=== PATIENT | female | born 1955 | race Two or more races ===

== ENCOUNTER 2018-11-08 08:00 | Inpatient (IN) | payer OTHER ==
[2018-11-02 10:09] VITALS: BMI 30.8
[2018-11-09] MEDS ORDERED: CEFAZOLIN 2 GM in DEXTROSE 5%-WATER - 50 ML IVPB ONE (07:18)
[2018-11-09] MEDS ORDERED: GABAPENTIN 300 MG CAPSULE (FP) PO ONE (07:18)
[2018-11-09] MEDS ORDERED: oxyCODONE HCL 10 MG SUSTAINED ACTING TABLET PO ONE (07:18)
[2018-11-09] MEDS ORDERED: TRANEXAMIC ACID 1000 MG/10 ML VIAL IVPUSH ONE (07:18)
--- NOTE | 2018-11-09 07:54 | HP ---
[facility] - Chief Complaint Chief Complaint: right knee pain - Past Medical History Allergies/Adverse Reactions: Allergies Allergy/AdvReac Type Severity Reaction Status Date / Time ibuprofen [From Motrin] Allergy Severe SWELLING,IT Verified 11/02/18 09:59 JENNIFER - Current Medications Current Medications: Home Medications Medication Instructions Recorded Atorvastatin Calcium [Lipitor] 20 mg PO HS 11/02/18 Multivitamins [Tab-A-Vit -] 1 tab PO DAILY 11/02/18 Cholecalciferol (Vitamin D3) 2,000 unit PO DAILY 11/09/18 [Vitamin D] [facility] Physical Exam - Physical Examination Vital Signs: Vital Signs Period Temp Pulse Resp BP Sys/Hayes Pulse Ox Last 24 Hr 98.7 F 82 18 132/82 General Appearance: Well Nourished, Well Developed, Alert & Oriented x3 ENT: Clear Lung: Normal air movement Heart: Regular rate & rhythm Extremities: Other (right knee- +swelling, + ttp, decr rom, nvi, xrays show grade 4 tricompartmental djd) Neurological: Intact, Alert, Oriented Satellite Impression/Plan - Impression/Plan Impression: right knee djd Operative Procedure: right johanny tkr Date to be Performed: 11/09/18
[2018-11-09] MEDS ORDERED: ceFAZolin SODIUM 1 GM VIAL ONE (08:07)
[2018-11-09] MEDS ORDERED: SODIUM CHLORIDE 0.9% P/F 10 ML VIAL IJ ONE ×4 (08:08→08:52)
[2018-11-09] MEDS ORDERED: BUPIVACAINE LIPOSOME/PF (EXPAREL) 266 MG/20 ML VIAL ONE (08:29)
[2018-11-09] MEDS ORDERED: MIDAZOLAM HCL 2 MG/2 ML SINGLE DOSE VIAL ONE ×3 (08:29→09:56)
[2018-11-09] MEDS ORDERED: PROPOFOL 20 ML ONE (08:43)
[2018-11-09] MEDS ORDERED: ONDANSETRON 4 MG/2 ML VIAL ONE (08:46)
[2018-11-09] MEDS ORDERED: DEXAMETHASONE SOD PHOSPHATE 4 MG/1 ML VIAL ONE (08:46)
[2018-11-09] MEDS ORDERED: LIDOCAINE HCL/PF 2% SDV 5ML VIAL ONE (08:46)
[2018-11-09] MEDS ORDERED: ePHEDrine SULFATE 50 MG/1 ML AMPULE ONE (08:49)
[2018-11-09] MEDS ORDERED: PHENYLEPHRINE HCL 10 MG/1 ML SINGLE DOSE VIAL ONE (08:50)
[2018-11-09] MEDS ORDERED: SUCCINYLCHOLINE CHLORIDE 200 MG/10 ML VIAL ONE (08:53)
[2018-11-09] MEDS ORDERED: ceFAZolin SODIUM 1 GM VIAL IVPB ONE ×2 (09:07→10:15)
[2018-11-09] MEDS ORDERED: LACTATED RINGERS SOLUTION 1,000 ML IV SCH (09:15)
[2018-11-09] MEDS ORDERED: VANCOMYCIN 1,000 MG VIAL (RESTRICTED TO ID ONLY) ONE (09:45)
[2018-11-09] MEDS ORDERED: TRANEXAMIC ACID 1000 MG/10 ML VIAL ONE (10:07)
[2018-11-09] MEDS ORDERED: VANCOMYCIN 1,000 MG VIAL (RESTRICTED TO ID ONLY) IVPB ONE (10:40)
--- NOTE | 2018-11-09 11:06 | OP ---
Operative Note - Note: Operative Date: 11/09/18 ([place]) Pre-Operative Diagnosis: right knee djd Operation: right johanny tkr Post-Operative Diagnosis: Same as Pre-op Surgeon: Raghav Wallace Manager Of International: Daren Escalante Anesthesiologist/GROUP MARKETING VP: Eric Ruiz Anesthesia: Spinal, Local Specimens Removed: bone fragments Estimated Blood Loss (mls): 100 Operative Report Dictated: Yes
[2018-11-09] MEDS: SENNOSIDES/DOCUSATE COMBO (SENNA PLUS) TABLET (UD) PO SCH ×2 (13:53→21:52)
[2018-11-09] MEDS: MULTIVITAMINS (DAILY MVI) TABLET (FP) PO SCH (13:54)
[2018-11-09] MEDS: PANTOPRAZOLE 40 MG TABLET (FP) PO SCH (13:54)
[2018-11-09] MEDS ORDERED: oxyCODONE HCL 5 MG TABLET PO PRN (14:49)
[2018-11-09] MEDS: oxyCODONE HCL 5 MG TABLET PO PRN ×2 (14:59→20:27)
[2018-11-09] MEDS: ACETAMINOPHEN 325 MG TABLET (FP) PO SCH ×2 (14:59→20:27)
--- NOTE | 2018-11-09 16:31 | CONSULT ---
Consult Consult Specialty:: IM Reason for Consultation:: post op medical management - History of Present Illness Chief Complaint: right knee pain History of Present Illness: 63 yo lady with PMH of HLD, hysterectomy, right knee DJD comes in for TKR denies chest pain, palpitations, nausea, vomiting, diarrhea. - History Source History Provided By: Patient, Medical Record Limitations to Obtaining History: Language Barrier - Past Medical History Cardio/Vascular: Yes: Hyperlipdemia - Past Surgical History Past Surgical History: Yes: Hysterectomy - Alcohol/Substance Use Hx Alcohol Use: No - Smoking History Smoking history: Never smoked Have you smoked in the past 12 months: No Home Medications - Allergies Allergies/Adverse Reactions: Allergies Allergy/AdvReac Type Severity Reaction Status Date / Time ibuprofen [From Motrin] Allergy Severe SWELLING,IT Verified 11/02/18 09:59 JENNIFER - Home Medications Home Medications: Ambulatory Orders Atorvastatin Calcium [Lipitor] 20 mg PO HS 11/02/18 Multivitamins [Multivit ([facility] Formulary)] 1 tab PO DAILY 11/02/18 Aspirin [ASA -] 325 mg PO DAILY@0800 tablet 11/09/18 Cholecalciferol (Vitamin D3) [Vitamin D3] 2,000 unit PO DAILY 11/09/18 Oxycodone HCl/Acetaminophen [Percocet 5-325 mg Tablet -] 1 - 2 tab PO Q6H #50 tab MDD 8 11/09/18 Physical Exam Vital Signs: Vital Signs Temperature 973 F H 11/09/18 13:08 Pulse Rate 68 11/09/18 13:08 Respiratory Rate 16 11/09/18 13:08 Blood Pressure 115/67 11/09/18 13:08 O2 Sat by Pulse Oximetry (%) 100 11/09/18 13:08 Constitutional: Yes: Well Nourished, No Distress Eyes: Yes: WNL HENT: Yes: WNL Neck: Yes: WNL Cardiovascular: Yes: WNL Respiratory: Yes: WNL Gastrointestinal: Yes: WNL Renal/: Yes: WNL Musculoskeletal: Yes: Joint Stiffness Extremities: Yes: WNL Edema: No Integumentary: Yes: WNL Wound/Incision: Yes: Clean/Dry, Well Approximated Neurological: Yes: WNL ...Motor Strength: WNL Psychiatric: Yes: WNL Assessment/Plan 63 yo lady with right knee djd S/P right johanny tkr. no complications. cont pain management. incentive spirometry. -GI, DVT prophylaxis. -peripheral neuropathy: on neurontin -PT/OT/OOB as tolerated -oral diet as tolerated -cont stool softeners for opioid induced constipation -ID: covered with Ancef. -assessment and plan discussed with pt -labs pending -hopefully will DC within 48 hours.
[2018-11-09] MEDS: CEFAZOLIN 2 GM/D5W 2 GM/50 ML ML IVPB SCH (18:06)
[2018-11-09] MEDS: ATORVASTATIN CA 20 MG TABLET (FP) PO SCH (21:53)
[2018-11-09] MEDS: GABAPENTIN 300 MG CAPSULE (FP) PO SCH (21:53)
[2018-11-09] MEDS: oxyCODONE HCL 10 MG SUSTAINED ACTING TABLET PO SCH (22:46)
[2018-11-10] MEDS: CEFAZOLIN 2 GM/D5W 2 GM/50 ML ML IVPB SCH (01:07)
[2018-11-10] MEDS: ONDANSETRON 4 MG/2 ML VIAL IVPUSH PRN ×2 (01:42→09:18)
[2018-11-10] MEDS: oxyCODONE HCL 5 MG TABLET PO PRN ×5 (02:45→21:22)
[2018-11-10] MEDS: ACETAMINOPHEN 325 MG TABLET (FP) PO SCH ×4 (02:46→21:21)
[2018-11-10] MEDS: MAG HYDROX/AL HYDROX/SIMETH 30 ML UNIT-DOSE CUP PO PRN (06:11)
[2018-11-10 07:21] LABS: HEMATOCRIT 31.9 % (32.4-45.2); MCH 26.6 pg (25.7-33.7); MCHC 31.4 g/dl (32.0-36.0); MEAN CELL VOLUME 84.8 fl (80-96); PLATELET COUNT 240 K/MM3 (134-434); RBC 3.76 M/mm3 (3.60-5.2); RDW 12.7 % (11.6-15.6); WHITE BLOOD COUNT 9.5 K/mm3 (4.0-10.8)
--- NOTE | 2018-11-10 07:44 | SPEC ---
DATE OF OPERATION: 11/09/2018 PREOPERATIVE DIAGNOSIS: Degenerative joint disease, right knee. POSTOPERATIVE DIAGNOSIS: Degenerative joint disease, right knee. PROCEDURE: Right total knee replacement with robotic-assisted navigation (Makoplasty). SURGICAL ATTENDING: Raghav Wallace MD SPORTS MEDICINE SPECIALIST: SAPNA Vail ANESTHESIA: Regional and spinal. CLOSURE: A cemented Triathlon Knee System with a 2 PS femur, a 2 tibia, a 13 polyethylene, a 29 patella, number 1 Vicryl fascia, 0 and 2-0 subcutaneous, 3-0 Monocryl subcuticular with skin glue, 4-0 undyed Vicryl for pin site. ESTIMATED BLOOD LOSS: Less than 100 mL. COMPLICATIONS: None. CONDITION: To recovery room in stable condition. DESCRIPTION OF OPERATIVE PROCEDURE: Patient was taken to the operating room on November 09, 2018. Regional and general anesthesia was administered by the anesthesiologist. IV Kefzol and TXA were administered by the anesthesiologist. Well-padded pneumatic tourniquet was placed on the proximal thigh. The right lower extremity was prepped and draped in the usual sterile fashion. The leg was exsanguinated with an Esmarch bandage, and tourniquet was inflated to 275 mmHg. A 12 to 15-cm longitudinal midline incision was incised while centered over the patella. The dissection was carried down to the level of the extensor mechanism with sufficient flaps made to adequately perform the procedure. A medial parapatellar arthrotomy was then performed. We made a cuff of tissue on the patella for later closure. The patella was inverted, the knee was flexed up. The fat pad was excised. The subperiosteal dissection was on the anteromedial proximal tibia around towards the direction of the MCL. The ACL and the PCL were transected and debrided. The meniscal remnants of the medial and lateral meniscus were debrided and removed. This allowed the knee to be able to "be brought forward." The checkpoints were malleted into the tibia and into the femur. Two threaded pins were drilled anteroposteriorly proximal to the knee through the previous incision, through the anterior cortex, then just engaging the posterior cortex. To these pins was assembled the femoral navigation array. One handbreadth below the tibial tubercle, 2 stab incisions were used to drill 2 threaded pins in parallel fashion into the tibia, again through the anterior cortex and just engaging the posterior cortex. To these pins was fastened the tibial arrays. The knee was then registered with the navigation device with center of rotation of the hip, medial and lateral malleoli, both checkpoints, and multiple points on both the femur and the tibia to ensure excellent registration. The navigation device was directed off the "top of the bubbles" on both the femur and the tibia. The navigation passed within less than 0.5 mm to plan. The knee was then thoroughly inspected to remove all osteophytes both medially, laterally, and on the femur and the tibia, and whatever osteophytes were available for dissection. The knee was then taken to extension and to flexion, and stressed in both varus and valgus to assess flexion gaps. The virtual position of the components on the navigation device were then manipulated to optimize the position and to ensure equal gaps in both flexion and extension, and both medially and laterally. The robot was then brought into the field and was registered. The cuts were then made both on the femur and on the tibia as to plan. All osteophytes posteriorly were then removed as well. The gaps were then measured again in flexion and extension to be equal in both flexion and extension and medial and laterally. The femoral notch was then made, as we were doing a posterior stabilizing component, with the appropriate sized box. Trial reduction of the femur achieved excellent [id number] fit. A tibial baseplate of appropriate polyethylene thickness was "floated in the knee." It was ensured to be in the excellent position by navigation devices and was pinned in place. The knee was taken through a range of motion, and found to have excellent stability throughout flexion and extension. The patella was calibrated for thickness and osteotomized down to the appropriate level. The appropriate lollipop was used to drill the lug holes in the patella and the trial button was applied. The knee was taken through a range of motion and found to have excellent tracking of the patella, and patella from full extension to full flexion. Trial components were removed, the keel was punched and drilled, and a sclerotic bone on the tibia was drilled to help with cement interdigitation. The knee was thoroughly irrigated with the pulse antibiotic demurrage agent. The real components were then cemented in using monitored arrangement cement techniques with antibiotic cement, and pressurization and extension. After the cement was hardened, the knee was thoroughly inspected to remove any extra cement. The real polyethylene component was then clipped into place. Range of motion, stability, and tracking were as described earlier. The checkpoints and the pins were removed. The knee was thoroughly irrigated with antibiotic irrigation. Vancomycin powder was placed into the knee for antibiotic prophylaxis. The medial parapatellar arthrotomy was then closed using number 1 Vicryl interrupted suture. After closure of the deep layer, the knee was taken through a range of motion, and found to have excellent stability of the patella with no dislocation and no undue tension on the repair. The subcutaneous was pulse antibiotic irrigated, and was then closed with 2-0 Vicryl, 3-0 Monocryl subcuticular with the skin glue for the skin. The distal tibial pin site was irrigated thoroughly as well and then closed with 4-0 undyed Vicryl. A sterile Aquacel dressing was applied, followed by a Patel dressing. Tourniquet was deflated. Total tourniquet time was approximately 75 minutes. No complications. Patient was awakened from anesthesia and transferred to recovery room in stable condition. Postoperative x-rays revealed excellent position of the components. Karen [id number]
[2018-11-10] MEDS: ASPIRIN 325 MG TABLET PO SCH (08:30)
--- NOTE | 2018-11-10 08:59 | PN ---
Progress Note (short form) - Note Progress Note: Ortho Pt seen and examined s/p right johanny tkr pod #1 Selected Entries 11/10/18 06:00 Temperature 98.3 F Pulse Rate 77 Respiratory 18 Rate Blood Pressure 112/57 L Laboratory Tests 11/10/18 07:13 WBC 9.5 Hgb 10.0 L Hct 31.9 L Plt Count 240 dressing c/d/i, calf soft, nt rom 0-30, nvi a/p PT dvt ppx pain control d/c planning to rehab
[2018-11-10] MEDS: oxyCODONE HCL 10 MG SUSTAINED ACTING TABLET PO SCH ×2 (09:20→21:20)
[2018-11-10] MEDS: MAGNESIUM HYDROX 2400MG/30ML ORAL SUSPENSION 30 ML CUP PO PRN (09:20)
[2018-11-10] MEDS: MULTIVITAMINS (DAILY MVI) TABLET (FP) PO SCH (09:20)
[2018-11-10] MEDS: SENNOSIDES/DOCUSATE COMBO (SENNA PLUS) TABLET (UD) PO SCH ×2 (09:20→21:21)
[2018-11-10] MEDS: PANTOPRAZOLE 40 MG TABLET (FP) PO SCH (09:20)
[2018-11-10] MEDS: GABAPENTIN 300 MG CAPSULE (FP) PO SCH ×2 (09:20→21:21)
--- NOTE | 2018-11-10 10:39 | PN ---
Progress Note, Physician Chief Complaint: right knee pain History of Present Illness: 63 yo lady with PMH of HLD, hysterectomy, right knee DJD comes in for TKR denies chest pain, palpitations, nausea, vomiting, diarrhea. - Current Medication List Current Medications: Active Medications Acetaminophen (Tylenol -) 650 mg PO Q6H [facility] Stop: 11/12/18 14:59 Last Admin: 11/10/18 08:30 Dose: 650 mg Al Hydroxide/Mg Hydroxide (Mylanta Oral Suspension -) 30 ml PO Q4H PRN PRN Reason: DYSPEPSIA Last Admin: 11/10/18 06:11 Dose: 30 ml Aspirin (Asa -) 325 mg PO DAILY@0800 [facility] Last Admin: 11/10/18 08:30 Dose: 325 mg Atorvastatin Calcium (Lipitor -) 20 mg PO HS [facility] Last Admin: 11/09/18 21:53 Dose: 20 mg Fentanyl (Sublimaze Injection -) 50 mcg IVPUSH [id number] PRN PRN Reason: PAIN-PACU ORDER X 4 DOSES ONLY Gabapentin (Neurontin -) 300 mg PO BID [facility] Last Admin: 11/10/18 09:20 Dose: 300 mg Magnesium Hydroxide (Milk Of Magnesia -) 30 ml PO PRN PRN PRN Reason: CONSTIPATION Last Admin: 11/10/18 09:20 Dose: 30 ml Multivitamins/Minerals/Vitamin C (Tab-A-Vit -) 1 tab PO DAILY [facility] Last Admin: 11/10/18 09:20 Dose: 1 tab Ondansetron HCl (Zofran Injection) 4 mg IVPUSH Q6H PRN PRN Reason: NAUSEA Last Admin: 11/10/18 09:18 Dose: 4 mg Oxycodone HCl (Roxicodone -) 5 mg PO Q3H PRN PRN Reason: PAIN LEVEL 1-5 Last Admin: 11/10/18 05:11 Dose: 5 mg Oxycodone HCl (Roxicodone -) 10 mg PO Q3H PRN PRN Reason: PAIN LEVEL 6-10 Oxycodone HCl (Oxycontin -) 10 mg PO BID [facility] Stop: 11/12/18 14:47 Last Admin: 11/10/18 09:20 Dose: 10 mg Oxycodone HCl (Roxicodone -) 5 mg PO Q3H PRN PRN Reason: PAIN LEVEL 1-5 Pantoprazole Sodium (Protonix -) 40 mg PO DAILY [facility] Last Admin: 11/10/18 09:20 Dose: 40 mg Senna/Docusate Sodium (Pericolace -) 2 tablet PO BID [facility] Last Admin: 11/10/18 09:20 Dose: 2 tablet - Objective Vital Signs: Vital Signs Temperature 97.7 F 11/10/18 09:22 Pulse Rate 72 11/10/18 09:22 Respiratory Rate 17 11/10/18 09:22 Blood Pressure 131/68 11/10/18 09:22 O2 Sat by Pulse Oximetry (%) 99 11/10/18 09:22 Constitutional: Yes: Well Nourished Eyes: Yes: WNL HENT: Yes: WNL Neck: Yes: WNL Cardiovascular: Yes: WNL Respiratory: Yes: WNL Gastrointestinal: Yes: WNL Musculoskeletal: Yes: Joint Stiffness Extremities: Yes: WNL Edema: No Peripheral Pulses WNL: Yes Integumentary: Yes: WNL Wound/Incision: Yes: Clean/Dry, Well Approximated ...Motor Strength: WNL Psychiatric: Yes: WNL Labs: CBC, BMP 11/10/18 07:13 Assessment/Plan 63 yo lady with right knee djd S/P right johanny tkr. no complications. cont pain management. incentive spirometry. -GI, DVT prophylaxis. -peripheral neuropathy: on neurontin -PT/OT/OOB as tolerated -oral diet as tolerated -cont stool softeners for opioid induced constipation -ID: covered with Ancef. -assessment and plan discussed with pt labs, meds, vital signs reviewed. stable for DC -
[2018-11-10] MEDS: SODIUM CHLORIDE 1,000 ML IV SCH (12:12)
--- NOTE | 2018-11-10 15:48 | PN ---
Progress Note (short form) - Note Progress Note: 63F POD1 s/p R TKR under spinal anesthetic with peripheral nerve blocks Pt states that pain is moderately controlled and reports no anesthetic complications. AVSS. Continue current regimen.
[2018-11-10] MEDS: ATORVASTATIN CA 20 MG TABLET (FP) PO SCH (21:20)
[2018-11-11] MEDS: ACETAMINOPHEN 325 MG TABLET (FP) PO SCH ×4 (06:20→21:46)
[2018-11-11 07:47] LABS: HEMATOCRIT 30.8 % (32.4-45.2); HEMOGLOBIN 10.4 GM/dl (10.7-15.3); MCH 28.3 pg (25.7-33.7); MCHC 33.7 g/dl (32.0-36.0); MEAN PLT VOLUME 8.9 fl (7.5-11.1); PLATELET COUNT 212 K/MM3 (134-434); RBC 3.67 M/mm3 (3.60-5.2); RDW 12.2 % (11.6-15.6); WHITE BLOOD COUNT 8.1 K/mm3 (4.0-10.8)
[2018-11-11] MEDS: ASPIRIN 325 MG TABLET PO SCH (07:58)
[2018-11-11] MEDS: ONDANSETRON 4 MG/2 ML VIAL IVPUSH PRN ×2 (07:58→15:45)
--- NOTE | 2018-11-11 08:16 | PN ---
Progress Note, Physician Chief Complaint: right knee pain History of Present Illness: 63 yo lady with PMH of HLD, hysterectomy, right knee DJD comes in for TKR denies chest pain, palpitations, nausea, vomiting, diarrhea. - Current Medication List Current Medications: Active Medications Acetaminophen (Tylenol -) 650 mg PO Q6H [facility] Stop: 11/12/18 14:59 Last Admin: 11/11/18 07:59 Dose: 650 mg Al Hydroxide/Mg Hydroxide (Mylanta Oral Suspension -) 30 ml PO Q4H PRN PRN Reason: DYSPEPSIA Last Admin: 11/10/18 06:11 Dose: 30 ml Aspirin (Asa -) 325 mg PO DAILY@0800 [facility] Last Admin: 11/11/18 07:58 Dose: 325 mg Atorvastatin Calcium (Lipitor -) 20 mg PO HS [facility] Last Admin: 11/10/18 21:20 Dose: 20 mg Gabapentin (Neurontin -) 300 mg PO BID [facility] Last Admin: 11/10/18 21:21 Dose: 300 mg Sodium Chloride (Normal Saline -) 1,000 mls @ 75 mls/hr IV ASDIR [facility] Last Admin: 11/10/18 12:12 Dose: 75 mls/hr Magnesium Hydroxide (Milk Of Magnesia -) 30 ml PO PRN PRN PRN Reason: CONSTIPATION Last Admin: 11/10/18 09:20 Dose: 30 ml Multivitamins/Minerals/Vitamin C (Tab-A-Vit -) 1 tab PO DAILY [facility] Last Admin: 11/10/18 09:20 Dose: 1 tab Ondansetron HCl (Zofran Injection) 4 mg IVPUSH Q6H PRN PRN Reason: NAUSEA Last Admin: 11/11/18 07:58 Dose: 4 mg Oxycodone HCl (Roxicodone -) 5 mg PO Q3H PRN PRN Reason: PAIN LEVEL 1-5 Last Admin: 11/10/18 11:19 Dose: 5 mg Oxycodone HCl (Roxicodone -) 10 mg PO Q3H PRN PRN Reason: PAIN LEVEL 6-10 Last Admin: 11/10/18 21:22 Dose: 10 mg Oxycodone HCl (Oxycontin -) 10 mg PO BID [facility] Stop: 11/12/18 14:47 Last Admin: 11/10/18 21:20 Dose: 10 mg Pantoprazole Sodium (Protonix -) 40 mg PO DAILY [facility] Last Admin: 11/10/18 09:20 Dose: 40 mg Senna/Docusate Sodium (Pericolace -) 2 tablet PO BID [facility] Last Admin: 11/10/18 21:21 Dose: 2 tablet - Objective Vital Signs: Vital Signs Temperature 98.9 F 11/11/18 05:00 Pulse Rate 107 H 11/11/18 05:00 Respiratory Rate 18 11/11/18 05:00 Blood Pressure 114/54 L 11/11/18 05:00 O2 Sat by Pulse Oximetry (%) 94 L 11/11/18 05:00 Constitutional: Yes: Well Nourished, No Distress Eyes: Yes: WNL HENT: Yes: WNL Neck: Yes: WNL Respiratory: Yes: WNL Gastrointestinal: Yes: WNL Genitourinary: Yes: WNL Musculoskeletal: Yes: Joint Stiffness Extremities: Yes: WNL Edema: No Peripheral Pulses WNL: Yes Integumentary: Yes: WNL Wound/Incision: Yes: Clean/Dry, Well Approximated ...Motor Strength: WNL Psychiatric: Yes: WNL Labs: CBC, BMP 11/11/18 07:14 Assessment/Plan 63 yo lady with right knee djd S/P right johanny tkr. no complications. cont pain management. incentive spirometry. -GI, DVT prophylaxis. -peripheral neuropathy: on neurontin -PT/OT/OOB as tolerated -oral diet as tolerated -cont stool softeners for opioid induced constipation -ID: covered with Ancef. -assessment and plan discussed with pt and her son labs, meds, vital signs reviewed. stable for DC to rehab. planned for tomorrow -
[2018-11-11] MEDS: oxyCODONE HCL 5 MG TABLET PO PRN ×2 (09:01→21:46)
--- NOTE | 2018-11-11 09:16 | PN ---
Progress Note (short form) - Note Progress Note: Ortho Pt seen and examined s/p right johanny tkr pod #2 Selected Entries 11/11/18 08:40 Temperature 98 F Pulse Rate 102 H Respiratory 18 Rate Blood Pressure 129/69 Laboratory Tests 11/11/18 07:14 WBC 8.1 Hgb 10.4 L Hct 30.8 L Plt Count 212 dressing c/d/i, calf soft, nt rom 0-30, nvi a/p PT dvt ppx pain control d/c planning to rehab for tomorrow
[2018-11-11] MEDS: PANTOPRAZOLE 40 MG TABLET (FP) PO SCH (09:44)
[2018-11-11] MEDS: SENNOSIDES/DOCUSATE COMBO (SENNA PLUS) TABLET (UD) PO SCH ×2 (09:45→21:45)
[2018-11-11] MEDS: GABAPENTIN 300 MG CAPSULE (FP) PO SCH ×2 (09:45→21:45)
[2018-11-11] MEDS: oxyCODONE HCL 10 MG SUSTAINED ACTING TABLET PO SCH ×2 (09:45→21:45)
[2018-11-11] MEDS: MULTIVITAMINS (DAILY MVI) TABLET (FP) PO SCH (09:45)
[2018-11-11] MEDS: SODIUM CHLORIDE 1,000 ML IV SCH (13:38)
[2018-11-11] MEDS: MAG HYDROX/AL HYDROX/SIMETH 30 ML UNIT-DOSE CUP PO PRN (13:40)
--- NOTE | 2018-11-11 16:34 | PATH ---
Surgical Pathology Report Patient Name: NICK HODGE Med. Rec. #: [id number] /Age/Gender: 1955 (Age: 63) / F Account: [id number] Location: [facility] MED-SURG Taken: 11/09/2018 Received: 11/09/2018 Reported: 11/11/2018 Physicians: Raghav Wallace M.D. Specimen(s) Received PATELLA, TIBIA, FEMUR BONE TISSUE RIGHT KNEE Clinical History Osteoarthritis right knee Final Diagnosis BONE, KNEE, PATELLA, TIBIA AND FEMORAL BONE TISSUE, RIGHT, TOTAL KNEE REPLACEMENT MAKOPLASTY: BONE WITH DEGENERATIVE JOINT DISEASE AND REACTIVE SYNOVIUM. Electronically Signed Lois Emery M.D. Gross Description Received in formalin labeled "right knee patella, tibia and femoral bone tissue," is a 10.0 x 9.0 x 1.5 cm aggregate of multiple portions of bone and soft tissue, consistent with knee bones. There is a 0.8 cm greatest dimension area of eburnation identified. The remaining articular surfaces are talavera-yellow and diffusely granular. The underlying trabecular bone is yellow and hard. Family Practice Md sections are submitted in one cassette, following decalcification. /11/10/2018 [facility]11/10/2018
[2018-11-11] MEDS: MAGNESIUM HYDROX 2400MG/30ML ORAL SUSPENSION 30 ML CUP PO PRN (18:19)
[2018-11-11] MEDS: ATORVASTATIN CA 20 MG TABLET (FP) PO SCH (21:45)
[2018-11-12] MEDS: ACETAMINOPHEN 325 MG TABLET (FP) PO SCH ×2 (05:00→08:33)
[2018-11-12] MEDS: oxyCODONE HCL 5 MG TABLET PO PRN (06:05)
[2018-11-12] MEDS: ASPIRIN 325 MG TABLET PO SCH (08:35)
--- NOTE | 2018-11-12 10:44 | PN ---
Progress Note, Physician Chief Complaint: right knee pain History of Present Illness: 63 yo lady with PMH of HLD, hysterectomy, right knee DJD comes in for TKR denies chest pain, palpitations, nausea, vomiting, diarrhea. - Current Medication List Current Medications: Active Medications Acetaminophen (Tylenol -) 650 mg PO Q6H [facility] Stop: 11/12/18 14:59 Last Admin: 11/12/18 08:33 Dose: 650 mg Al Hydroxide/Mg Hydroxide (Mylanta Oral Suspension -) 30 ml PO Q4H PRN PRN Reason: DYSPEPSIA Last Admin: 11/11/18 13:40 Dose: 30 ml Aspirin (Asa -) 325 mg PO DAILY@0800 [facility] Last Admin: 11/12/18 08:35 Dose: 325 mg Atorvastatin Calcium (Lipitor -) 20 mg PO HS [facility] Last Admin: 11/11/18 21:45 Dose: 20 mg Gabapentin (Neurontin -) 300 mg PO BID [facility] Last Admin: 11/11/18 21:45 Dose: 300 mg Sodium Chloride (Normal Saline -) 1,000 mls @ 75 mls/hr IV ASDIR [facility] Last Admin: 11/11/18 13:38 Dose: Not Given Magnesium Hydroxide (Milk Of Magnesia -) 30 ml PO PRN PRN PRN Reason: CONSTIPATION Last Admin: 11/11/18 18:19 Dose: 30 ml Multivitamins/Minerals/Vitamin C (Tab-A-Vit -) 1 tab PO DAILY [facility] Last Admin: 11/11/18 09:45 Dose: 1 tab Ondansetron HCl (Zofran Injection) 4 mg IVPUSH Q6H PRN PRN Reason: NAUSEA Last Admin: 11/11/18 15:45 Dose: 4 mg Oxycodone HCl (Roxicodone -) 5 mg PO Q3H PRN PRN Reason: PAIN LEVEL 1-5 Last Admin: 11/11/18 21:46 Dose: 5 mg Oxycodone HCl (Roxicodone -) 10 mg PO Q3H PRN PRN Reason: PAIN LEVEL 6-10 Last Admin: 11/12/18 06:05 Dose: 10 mg Oxycodone HCl (Oxycontin -) 10 mg PO BID [facility] Stop: 11/12/18 14:47 Last Admin: 11/11/18 21:45 Dose: 10 mg Pantoprazole Sodium (Protonix -) 40 mg PO DAILY [facility] Last Admin: 11/11/18 09:44 Dose: 40 mg Senna/Docusate Sodium (Pericolace -) 2 tablet PO BID [facility] Last Admin: 11/11/18 21:45 Dose: 2 tablet - Objective Vital Signs: Vital Signs Temperature 98.6 F 11/12/18 06:00 Pulse Rate 111 H 11/12/18 06:00 Respiratory Rate 20 11/12/18 06:00 Blood Pressure 133/70 11/12/18 06:00 O2 Sat by Pulse Oximetry (%) 95 11/12/18 06:00 Constitutional: Yes: Well Nourished Eyes: Yes: WNL HENT: Yes: WNL Neck: Yes: WNL Respiratory: Yes: WNL Gastrointestinal: Yes: WNL Genitourinary: Yes: WNL Musculoskeletal: Yes: Joint Stiffness Extremities: Yes: WNL Edema: No Peripheral Pulses WNL: Yes Integumentary: Yes: WNL Wound/Incision: Yes: Clean/Dry, Well Approximated Neurological: Yes: WNL Labs: CBC, BMP 11/11/18 07:14 Assessment/Plan 63 yo lady with right knee djd S/P right johanny tkr. no complications. cont pain management. incentive spirometry. -S/P fall yesterday and this morning. no obvious injury observed. CT head results pending. fall precautions. Pt is being observed in the hallway for safety reasons. -GI, DVT prophylaxis. -peripheral neuropathy: on neurontin -acute on chronic iron deficiency anemia: on MVN daily. -PT/OT/OOB as tolerated -oral diet as tolerated -cont stool softeners for opioid induced constipation -ID: covered with Ancef. -assessment and plan discussed with pt and staff. labs, meds, vital signs reviewed. stable for DC to rehab. -
[2018-11-12 10:47] VITALS: BP 100/56; PULSE 92; TEMP 98.2
== END 2018-11-12 09:30 | DRG 470 ==
LOC: FM/S 11-09 07:00
PROVIDERS: ADMIT Orthopaedic Surgery; ATTEND Orthopaedic Surgery
PROC: 8E0Y0CZ Robotic Assisted Procedure of Lower Extremity, Open Approach (ICD-10-PCS; 2018-11-09)
PROC: 0SRC0J9 Replacement of Right Knee Joint with Synthetic Substitute, Cemented, Open Approach (ICD-10-PCS; principal; 2018-11-09 09:00)
DX: M17.11 Unilateral primary osteoarthritis, right knee (principal); E78.5 Hyperlipidemia, unspecified; G62.9 Polyneuropathy, unspecified
CPT/HCPCS: 36415; 73560-TC-RT-FY; 85027; 88304-TC; 88311-TC; 94760; 97116-GP; 97163-GP; J7030

== ENCOUNTER 2019-11-17 08:53 | Inpatient (IN) | payer MEDICARE, OTHER ==
[2019-11-13 09:57] VITALS: BMI 31.8
--- NOTE | 2019-11-17 08:03 | HP ---
[facility] - Chief Complaint Chief Complaint: left knee pain - Past Medical History Allergies/Adverse Reactions: Allergies Allergy/AdvReac Type Severity Reaction Status Date / Time ibuprofen [From Motrin] Allergy Severe SWELLING,IT Verified 11/13/19 09:48 JENNIFER Cardiovascular: Yes: Hyperlipdemia - Current Medications Current Medications: Home Medications Medication Instructions Recorded Atorvastatin Calcium [Lipitor] 20 mg PO HS 11/02/18 Multivitamins [Multivit ([facility] 1 tab PO DAILY 11/02/18 Formulary)] Cholecalciferol (Vitamin D3) 2,000 unit PO DAILY 11/09/18 [Vitamin D3] Folic Acid 1 mg PO DAILY 11/13/19 Methotrexate [Mexate -] 17.5 mg PO Q7D 11/13/19 [facility] Physical Exam - Physical Examination General Appearance: Well Nourished, Well Developed, Alert & Oriented x3 ENT: Clear Lung: Normal air movement Extremities: Other (left knee- + swelling, + ttp, decr rom, nvi, xrays show grade 4 tricompartmental djd) Neurological: Intact, Alert, Oriented Satellite Impression/Plan - Impression/Plan Impression: left knee djd Operative Procedure: left johanny tkr Date to be Performed: 11/17/19
[2019-11-17] MEDS ORDERED: SODIUM CHLORIDE 0.9% P/F 10 ML VIAL IJ ONE (09:50)
[2019-11-17] MEDS ORDERED: MIDAZOLAM HCL 2 MG/2 ML SINGLE DOSE VIAL ONE ×3 (09:50→11:39)
[2019-11-17] MEDS ORDERED: BUPIVACAINE LIPOSOME/PF (EXPAREL) 266 MG/20 ML VIAL ONE (09:50)
[2019-11-17] MEDS ORDERED: BUPIVACAINE HCL/PF 0.5% (5MG/ML) 10 ML VIAL ONE (11:00)
[2019-11-17] MEDS ORDERED: ONDANSETRON 4 MG/2 ML VIAL IVPUSH PRN ×2 (11:02→13:31)
[2019-11-17] MEDS ORDERED: MAG HYDROX/AL HYDROX/SIMETH 30 ML UNIT-DOSE CUP PO PRN (11:02)
[2019-11-17] MEDS ORDERED: MAGNESIUM HYDROX 2400MG/30ML ORAL SUSPENSION 30 ML CUP PO PRN (11:02)
[2019-11-17] MEDS ORDERED: LACTATED RINGERS SOLUTION 1,000 ML IV SCH ×2 (11:15→13:45)
[2019-11-17] MEDS ORDERED: ceFAZolin SODIUM 1 GM VIAL ONE (11:16)
[2019-11-17] MEDS ORDERED: TRANEXAMIC ACID 1000 MG/10 ML VIAL ONE (11:24)
[2019-11-17] MEDS ORDERED: PROPOFOL 20 ML ONE ×2 (11:25→12:12)
[2019-11-17] MEDS ORDERED: CEFAZOLIN 2 GM in DEXTROSE 5%-WATER - 50 ML IVPB ONE (11:30)
[2019-11-17] MEDS ORDERED: TRANEXAMIC ACID 1000 MG/10 ML VIAL IVPUSH ONE (11:30)
[2019-11-17] MEDS ORDERED: ONDANSETRON 4 MG/2 ML VIAL ONE (11:31)
[2019-11-17] MEDS ORDERED: DEXAMETHASONE SOD PHOSPHATE 4 MG/1 ML VIAL ONE (11:31)
[2019-11-17] MEDS ORDERED: VANCOMYCIN 1,000 MG VIAL (RESTRICTED TO ID ONLY) ONE (11:37)
[2019-11-17] MEDS ORDERED: VANCOMYCIN 1,000 MG VIAL (RESTRICTED TO ID ONLY) IVPB ONE (12:20)
--- NOTE | 2019-11-17 12:55 | OP ---
Operative Note - Note: Operative Date: 11/17/19 ([place]) Pre-Operative Diagnosis: left knee djd Operation: left johanny tkr Post-Operative Diagnosis: Same as Pre-op Surgeon: Raghav Wallace Assurance Analyst: Daren Escalante Anesthesiologist/REED POLISHER: Pjua Jensen Anesthesia: Spinal, Local Specimens Removed: bone fragments Estimated Blood Loss (mls): 100
[2019-11-17] MEDS ORDERED: HYDROmorphone HCL CARPU-JECT 1 MG/1 ML DISP.SYRIN IVPUSH PRN (13:31)
[2019-11-17] MEDS: oxyCODONE HCL 5 MG TABLET PO PRN (17:22)
[2019-11-17] MEDS: CEFAZOLIN 2 GM/D5W 2 GM/50 ML ML IVPB SCH (18:20)
[2019-11-17] MEDS: ATORVASTATIN CA 20 MG TABLET (FP) PO SCH (21:24)
[2019-11-17] MEDS: oxyCODONE HCL 10 MG SUSTAINED ACTING TABLET PO SCH (21:24)
[2019-11-17] MEDS: SENNOSIDES/DOCUSATE COMBO (SENNA PLUS) TABLET (UD) PO SCH (21:24)
[2019-11-18] MEDS: CEFAZOLIN 2 GM/D5W 2 GM/50 ML ML IVPB SCH (02:02)
[2019-11-18] MEDS: oxyCODONE HCL 5 MG TABLET PO PRN (06:40)
[2019-11-18 08:34] LABS: HEMATOCRIT 29.7 % (32.4-45.2); HEMOGLOBIN 10.1 GM/dl (10.7-15.3); MCH 28.9 pg (25.7-33.7); MCHC 34.1 g/dl (32.0-36.0); MEAN CELL VOLUME 84.6 fl (80-96); MEAN PLT VOLUME 8.5 fl (7.5-11.1); PLATELET COUNT 199 K/MM3 (134-434); RDW 13.9 % (11.6-15.6); WHITE BLOOD COUNT 8.6 K/mm3 (4.0-10.8)
[2019-11-18] MEDS: MULTIVITAMINS (DAILY MVI) TABLET (FP) PO SCH (09:06)
[2019-11-18] MEDS: PANTOPRAZOLE 40 MG TABLET PO SCH (09:06)
[2019-11-18] MEDS: SENNOSIDES/DOCUSATE COMBO (SENNA PLUS) TABLET (UD) PO SCH ×2 (09:06→21:26)
[2019-11-18] MEDS: oxyCODONE HCL 10 MG SUSTAINED ACTING TABLET PO SCH ×2 (09:07→21:25)
[2019-11-18] MEDS: ASPIRIN 325 MG TABLET PO SCH (09:07)
--- NOTE | 2019-11-18 11:49 | SPEC ---
DATE OF OPERATION: 11/17/2019 PREOPERATIVE DIAGNOSIS: Degenerative joint disease, left knee. POSTOPERATIVE DIAGNOSIS: Degenerative joint disease, left knee. PROCEDURE: Left total knee replacement with robotic-assisted navigation (Makoplasty). SURGICAL ATTENDING: Raghav Wallace M.D. TIME CLOCK INSPECTOR: Raffi Vail ANESTHESIA: Regional and spinal. CLOSURE: A Triathlon cemented knee system with a 3 femur, 2 tibia, 11 polyethylene, 29 patella, number 1 Vicryl fascia, 0 and 2-0 subcutaneous, 3-0 Monocryl subcuticular with skin glue for skin, 4-0 undyed Vicryl for pin site. ESTIMATED BLOOD LOSS: Negligible. COMPLICATIONS: None. CONDITION: To recovery room in stable condition. DESCRIPTION OF OPERATIVE PROCEDURE: Patient was taken to the operating room on November 17, 2019. Regional and general anesthesia was administered by the anesthesiologist. IV Kefzol and TXA were administered by the anesthesiologist. Well-padded pneumatic tourniquet was placed on the proximal thigh. The left lower extremity was prepped and draped in the usual sterile fashion. The leg was exsanguinated with an Esmarch bandage, and tourniquet was inflated to 275 mmHg. A 12 to 15-cm longitudinal midline incision was incised while centered over the patella. The dissection was carried down to the level of the extensor mechanism with sufficient flaps made to adequately perform the procedure. A medial parapatellar arthrotomy was then performed. We made a cuff of tissue on the patella for later closure. The patella was inverted, the knee was flexed up. The fat pad was excised. The subperiosteal dissection was on the anteromedial proximal tibia around towards the direction of the MCL. The ACL and the PCL were transected and debrided. The meniscal remnants of the medial and lateral meniscus were debrided and removed. This allowed the knee to be able to "be brought forward." The checkpoints were malleted into the tibia and into the femur. Two threaded pins were drilled anteroposteriorly proximal to the knee through the previous incision, through the anterior cortex, then just engaging the posterior cortex. To these pins was assembled the femoral navigation array. One handbreadth below the tibial tubercle, 2 stab incisions were used to drill 2 threaded pins in parallel fashion into the tibia, again through the anterior cortex and just engaging the posterior cortex. To these pins was fastened the tibial arrays. The knee was then registered with the navigation device with center of rotation of the hip, medial and lateral malleoli, both checkpoints, and multiple points on both the femur and the tibia to ensure excellent registration. The navigation device was directed off the "top of the bubbles" on both the femur and the tibia. The navigation passed within less than 0.5 mm to plan. The knee was then thoroughly inspected to remove all osteophytes both medially, laterally, and on the femur and the tibia, and whatever osteophytes were available for dissection. The knee was then taken to extension and to flexion, and stressed in both varus and valgus to assess flexion gaps. The virtual position of the components on the navigation device were then manipulated to optimize the position and to ensure equal gaps in both flexion and extension, and both medially and laterally. The robot was then brought into the field and was registered. The cuts were then made both on the femur and on the tibia as to plan. All osteophytes posteriorly were then removed as well. The gaps were then measured again in flexion and extension to be equal in both flexion and extension and medial and laterally. The femoral notch was then made, as we were doing a posterior stabilizing component, with the appropriate sized box. Trial reduction of the femur achieved excellent yinm-ae-oral fit. A tibial baseplate of appropriate polyethylene thickness was "floated in the knee." It was ensured to be in the excellent position by navigation devices and was pinned in place. The knee was taken through a range of motion, and found to have excellent stability throughout flexion and extension. The patella was calibrated for thickness and osteotomized down to the appropriate level. The appropriate lollipop was used to drill the lug holes in the patella and the trial button was applied. The knee was taken through a range of motion and found to have excellent tracking of the patella, and patella from full extension to full flexion. Trial components were removed, the keel was punched and drilled, and a sclerotic bone on the tibia was drilled to help with cement interdigitation. The knee was thoroughly irrigated with the pulse antibiotic toys and games hand finisher. The real components were then cemented in using monitored arrangement cement techniques with antibiotic cement, and pressurization and extension. After the cement was hardened, the knee was thoroughly inspected to remove any extra cement. The real polyethylene component was then clipped into place. Range of motion, stability, and tracking were as described earlier. The checkpoints and the pins were removed. The knee was thoroughly irrigated with antibiotic irrigation. Vancomycin powder was placed into the knee for antibiotic prophylaxis. The medial parapatellar arthrotomy was then closed using number 1 Vicryl interrupted suture. After closure of the deep layer, the knee was taken through a range of motion, and found to have excellent stability of the patella with no dislocation and no undue tension on the repair. The subcutaneous was pulse antibiotic irrigated, and was then closed with 2-0 Vicryl, 3-0 Monocryl subcuticular with the skin glue for the skin. The distal tibial pin site was irrigated thoroughly as well and then closed with 4-0 undyed Vicryl. A sterile Aquacel dressing was applied, followed by a Patel dressing. Tourniquet was deflated. Total tourniquet time was approximately 24 minutes. No complications. Patient was awakened from anesthesia and transferred to recovery room in stable condition. Postoperative x-rays revealed excellent position of the components. Karen [id number]
[2019-11-18] MEDS: ATORVASTATIN CA 20 MG TABLET (FP) PO SCH (21:25)
--- NOTE | 2019-11-18 22:45 | PN ---
Progress Note (short form) - Note Progress Note: AVSS comfortable Bandages dry and intact calf soft and NT NVI Imp: doing well Plan: PT and Dc in AM
[2019-11-19] MEDS: oxyCODONE HCL 5 MG TABLET PO PRN ×2 (06:52→11:52)
[2019-11-19] MEDS: ASPIRIN 325 MG TABLET PO SCH (08:44)
[2019-11-19 09:17] LABS: HEMATOCRIT 29.2 % (32.4-45.2); HEMOGLOBIN 10.1 GM/dl (10.7-15.3); MCH 29.1 pg (25.7-33.7); MCHC 34.6 g/dl (32.0-36.0); MEAN CELL VOLUME 84.2 fl (80-96); MEAN PLT VOLUME 8.5 fl (7.5-11.1); PLATELET COUNT 203 K/MM3 (134-434); RBC 3.46 M/mm3 (3.60-5.2); RDW 13.8 % (11.6-15.6); WHITE BLOOD COUNT 8.5 K/mm3 (4.0-10.8)
[2019-11-19 10:38] VITALS: BP 122/59; PULSE 98; TEMP 99.5
[2019-11-19] MEDS: oxyCODONE HCL 10 MG SUSTAINED ACTING TABLET PO SCH (10:40)
[2019-11-19] MEDS: PANTOPRAZOLE 40 MG TABLET PO SCH (10:41)
[2019-11-19] MEDS: SENNOSIDES/DOCUSATE COMBO (SENNA PLUS) TABLET (UD) PO SCH (10:41)
[2019-11-19] MEDS: MULTIVITAMINS (DAILY MVI) TABLET (FP) PO SCH (10:41)
[2019-11-19] MEDS ORDERED: PT OWN MED DRAWER 7, Y5N ONE (13:27)
--- NOTE | 2019-11-22 12:58 | PATH ---
Surgical Pathology Report Patient Name: NICK HODGE Med. Rec. #: [id number] /Age/Gender: 1955 (Age: 64) / F Account: [id number] Location: [facility] Taken: 11/17/2019 Received: 11/17/2019 Reported: 11/22/2019 Physicians: Raghav Wallace M.D. Specimen(s) Received LEFT KNEE BONES Clinical History Left knee osteoarthritis Final Diagnosis KNEE BONES, LEFT, TOTAL KNEE REPLACEMENT: DEGENERATIVE JOINT DISEASE. Electronically Signed Glory Zabala M.D. Gross Description Received in formalin labeled "left knee bones," is a 12.0 x 10.0 x 2.3 cm aggregate of multiple irregular, unoriented portions of bone and soft tissue, consistent with knee bones. There is a 1.9 cm greatest dimension area of eburnation identified. The remaining articular surfaces are talavera-brown and diffusely granular. The underlying trabecular bone is yellow and hard. Hvac/R Service Technician sections are submitted in one cassette, following decalcification. /11/20/2019 [facility]
== END 2019-11-19 14:02 | disposition home health service (06) | DRG 470 ==
LOC: FM/S 08:53
PROVIDERS: ADMIT Orthopaedic Surgery; ATTEND Orthopaedic Surgery
PROC: 8E0Y0CZ Robotic Assisted Procedure of Lower Extremity, Open Approach (ICD-10-PCS; 2019-11-17)
PROC: 0SRD0J9 Replacement of Left Knee Joint with Synthetic Substitute, Cemented, Open Approach (ICD-10-PCS; principal; 2019-11-17 11:26)
DX: M17.12 Unilateral primary osteoarthritis, left knee (principal); E78.5 Hyperlipidemia, unspecified
CPT/HCPCS: 36415; 73560-TC-LT-FY; 85027; 88304-TC; 88311-TC; 97010-GP; 97116-GP

== ENCOUNTER 2021-05-01 05:18 | Day surgery (SDC) | payer OTHER ==
[2021-04-28 16:11] VITALS: BMI 32.1
[2021-05-01 12:29] VITALS: BP 135/84; PULSE 68; TEMP 98
== END 2021-05-01 12:15 | disposition home or self-care (01) ==
LOC: JASU-ENDO 05:18
PROVIDERS: ATTEND Internal Medicine Gastroenterology
PROC: 0DB68ZX Excision of Stomach, Via Natural or Artificial Opening Endoscopic, Diagnostic (ICD-10-PCS; principal; 2021-05-01 12:00)
DX: K29.50 Unspecified chronic gastritis without bleeding (principal)
CPT/HCPCS: 88305-TC; 88342-TC

== ENCOUNTER 2024-08-07 16:14 | Emergency (ER) | payer OTHER ==
[2024-08-07 16:40] VITALS: RESP 16; BMI 32.5
[2024-08-07] MEDS ORDERED: ACETAMINOPHEN 325 MG TABLET (FP) ONE (18:17)
[2024-08-07 18:23] VITALS: BP 129/54; PULSE 70; TEMP 97.9
[2024-08-07] MEDS: ACETAMINOPHEN 500 MG TABLET (FP) PO ONE (18:29)
[2024-08-07 18:59] LABS: BASO % 0.2 % (0-2.0); EOS % 1.4 % (0-4.5); HEMATOCRIT 40.4 % (32.4-45.2); HEMOGLOBIN 13.1 GM/dL (10.7-15.3); LYMPH % 29.3 % (8-40); MCH 27.2 pg (25.7-33.7); MCHC 32.5 g/dl (32.0-36.0); MEAN CELL VOLUME 83.8 fl (80-96); MEAN PLT VOLUME 8.5 fl (7.5-11.1); MONO % 5.7 % (3.8-10.2); NEUT % 63.4 % (42.8-82.8); PLATELET COUNT 246 10^3/uL (134-434); RBC 4.82 M/mm3 (3.60-5.2); RDW 14.3 % (11.6-15.6); WHITE BLOOD COUNT 6.2 K/mm3 (4.0-10.0)
[2024-08-07 19:22] LABS: POTASSIUM 4.4 mmol/L (3.5-5.1)
[2024-08-07 19:26] LABS: CALCIUM 9.1 mg/dL (8.5-10.1)
[2024-08-07 19:27] LABS: ALBUMIN 3.8 g/dl (3.4-5.0); BLOOD UREA NITROGEN 16.2 mg/dL (7-18)
[2024-08-07 19:30] LABS: CREATININE 0.8 mg/dL (0.55-1.3)
[2024-08-07 19:31] LABS: BILIRUBIN,TOTAL 0.4 mg/dL (0.2-1)
[2024-08-07 20:28] LABS: ERYTHROCYTE SEDIMENTATION RATE 40 mm/hr (0-30)
[2024-08-07 20:35] LABS: HIV INTERPRETATION NEGATIVE (NEGATIVE)
== END 2024-08-07 21:00 | disposition home or self-care (01) ==
LOC: JER 16:14
DX: M26.621 Arthralgia of right temporomandibular joint (principal)
CPT/HCPCS: 36415; 70450-TC; 80053; 85025; 85651; 86140; 86803; 87389; 93005; 93010; 99285-25